=== PATIENT | female | born 1970 | race Caucasian/White ===

== ENCOUNTER 2016-11-07 21:42 | Emergency (ER) | payer OTHER ==
[2016-11-07 21:43] VITALS: BMI 35.2
[2016-11-07 22:18] VITALS: BP 145/81; PULSE 77; RESP 20; TEMP 97.1; O2SAT 100
[2016-11-07] MEDS ORDERED: Sodium Chloride 0.9% 1,000 ML IV STA (23:06)
--- NOTE | 2016-11-07 23:13 | ED PDOC ---
HPI: General Adult Time Seen by Provider: 11/07/16 22:24 Chief Complaint (Nursing): Dizziness/Lightheaded Chief Complaint (Provider): Dizziness, throat pain History Per: Patient History/Exam Limitations: no limitations Onset/Duration Of Symptoms: Hrs Have you had recent travel within the past 21 days to any of the following countries: [place], [place], [place] or [place]?: No Current Symptoms Are (Timing): Still Present Additional History Per: Patient Additional Complaint(s): The patient is a 46yo female, no past medical history, presents to the ED with complaints of dizzines and throat discomfort. Patient reports she was seen at a clinic 6 days ago for folliculitis and was started on Doxycycline. Patient reports she took her 1st dose today and within 2 hours of taking the dose, she felt weak, dizzy and had throat discomfort. Patient also reports epigastric pain but denies any nausea, vomiting, fever, cough, shortness of breath, chest pain. She offers no additional medical complaints. Past Medical History Reviewed: Historical Data, Nursing Documentation, Vital Signs Vital Signs: Last Vital Signs Temp 97.1 F L 11/07/16 22:15 Pulse 77 11/07/16 22:15 Resp 20 11/07/16 22:15 BP 145/81 11/07/16 22:15 Pulse Ox 100 11/08/16 01:09 - Medical History PMH: Anemia, Anxiety (ABOUT SURGERY), Gastritis, HTN Denies: Chronic Kidney Disease - Surgical History Other surgeries: hysterectomy - Family History Family History: States: Unknown Family Hx - Social History Current smoker - smoking cessation education provided: No Alcohol: None Drugs: Denies - Home Medications Home Medications: Ambulatory Orders Medication Instructions Recorded Omeprazole Magnesium [Prilosec Otc] 1 tcp PO PRN PRN 08/21/13 DiphenhydrAMINE [Benadryl] 1 cap PO PRN PRN 09/19/13 Cyproheptadine Hydrochloride 4 mg PO 09/30/13 [Periactin] oxyCODONE/Acetaminophen [Percocet 1 tab PO PRN 09/30/13 5/325 mg Tab] Docusate [Colace LIQUID] 100 mg PO BID #28 udc 10/02/13 Ibuprofen [Motrin] 800 mg PO Q6 PRN #40 tab 10/02/13 Nitrofurantoin Macrocrystals 1 cap PO BID #14 cap 10/10/13 [Macrobid] Cephalexin [Keflex] 500 mg PO Q6 #28 capsule 11/08/16 Famotidine [Pepcid] 20 mg PO Q12 #14 tab 11/08/16 - Allergies Allergies/Adverse Reactions: Allergies Allergy/AdvReac Type Severity Reaction Status Date / Time acetaminophen [From Percocet] Allergy RASH Verified 11/07/16 22:15 lactose Allergy NAUSEA Verified 11/07/16 22:15 megestrol Allergy RASH Verified 11/07/16 22:15 oxycodone [From Percocet] Allergy RASH Verified 11/07/16 22:15 Review of Systems ROS Statement: Except As Marked, All Systems Reviewed And Found Negative Constitutional: Negative for: Fever ENT: Positive for: Throat Pain (throat discomfort) Cardiovascular: Negative for: Chest Pain Respiratory: Negative for: Cough, Shortness of Breath Gastrointestinal: Positive for: Abdominal Pain (mild epigastric pain) Neurological: Positive for: Weakness, Dizziness Physical Exam - Reviewed Nursing Documentation Reviewed: Yes Vital Signs Reviewed: Yes - Physical Exam Appears: Positive for: Well, Non-toxic, No Acute Distress Head Exam: Positive for: ATRAUMATIC, NORMAL INSPECTION, NORMOCEPHALIC Skin: Positive for: Normal Color, Warm, Dry Eye Exam: Positive for: Normal appearance, EOMI, PERRL ENT: Positive for: Normal ENT Inspection Neck: Positive for: Normal, Supple Cardiovascular/Chest: Positive for: Regular Rate, Rhythm Respiratory: Positive for: Normal Breath Sounds. Negative for: Respiratory Distress Gastrointestinal/Abdominal: Positive for: Normal Exam, Soft. Negative for: Tenderness Back: Positive for: Normal Inspection Extremity: Positive for: Normal ROM. Negative for: Deformity, Swelling Neurologic/Psych: Positive for: Alert, Oriented. Negative for: Motor/Sensory Deficits - Laboratory Results Result Diagrams: 11/08/16 00:34 11/08/16 00:34 - ECG O2 Sat by Pulse Oximetry: 100 (RA) Pulse Ox Interpretation: Normal Medical Decision Making Medical Decision Making: Time: 2300 Impression: 46yo female with weakness, dizziness in setting of recent antibiotics use Plan: -- Labs -- IV Fluids Reassess Time: 0000 Labs reviewed and indicate no clinically significant abnormalities. Patient reports improvement of symptoms. Patient advised to discontinue use of doxycycline and given prescription for Kefflex. Patient stable for discharge home. Diagnosis: Adverse reaction to medications Scribe Attestation: Documented by Kylee Cho acting as a scribe for Edgardo Gonsales MD. Provider Attestation: All medical record entries made by the Scribe were at my direction and personally dictated by me. I have reviewed the chart and agree that the record accurately reflects my personal performance of the history, physical exam, medical decision making, and the department course for this patient. I have also personally directed, reviewed, and agree with the discharge instructions and disposition. Disposition - Clinical Impression Clinical Impression: Adverse drug experience - Patient ED Disposition Is Patient to be Admitted: No - Disposition Disposition: Routine/Home Disposition Time: 00:00 Condition: STABLE Prescriptions: Cephalexin [Keflex] 500 mg PO Q6 #28 capsule Famotidine [Pepcid] 20 mg PO Q12 #14 tab Instructions: Adverse Drug Reaction (ED) Forms: [employer] (Gabonese), [facility] ED School/Work Excuse Print Language: NICARAGUAN
[2016-11-08 00:39] LABS: BASO # 0.1 K/uL (0.0-0.2); BASO % 0.7 % (0.0-2.0); EOS # 0.1 K/uL (0.0-0.7); EOS % 1.6 % (0.0-4.0); HEMATOCRIT 40.2 % (34.0-47.0); LYMPH # 2.6 K/uL (1.0-4.3); LYMPH % 32.6 % (20.0-40.0); MEAN CELL VOLUME 84.9 fl (81.0-99.0); MEAN CORPUSCULAR HEMOGLOBIN 27.4 pg (27.0-31.0); MEAN CORPUSCULAR HGB CONC 32.3 g/dL (33.0-37.0); MEAN PLATELET VOLUME 8.9 fl (7.2-11.7); MONO # 0.7 K/uL (0.0-0.8); MONO % 8.4 % (0.0-10.0); NEUT # 4.6 K/uL (1.8-7.0); NEUT % 56.7 % (50.0-75.0); NRBC % 0.1 % (0.0-0.0); RED CELL DISTRIBUTION WIDTH 13.7 % (11.5-14.5); WHITE BLOOD COUNT 8.1 K/uL (4.8-10.8)
[2016-11-08 00:48] LABS: ALB/GLOB RATIO 1.3 (1.0-2.1); ALKALINE PHOSPHATASE 68 U/L (38-126); ALT/SGPT 41 U/L (9-52); AST/SGOT 22 U/L (14-36); BILIRUBIN,TOTAL 0.4 mg/dl (0.2-1.3); BLOOD UREA NITROGEN 22 mg/dl (7-17); CALCIUM 9.4 mg/dL (8.4-10.2); CARBON DIOXIDE 22 mmol/L (22-30); CHLORIDE 105 mmol/L (98-107); GFR AFRICAN-AMERICAN > 60; GLUCOSE,RANDOM 100 mg/dL (65-105); SODIUM 138 mmol/l (132-148); TOTAL PROTEIN 7.1 G/DL (6.3-8.2)
--- NOTE | 2016-11-08 11:21 | CARD ---
APPROVED REPORT EKG Measurement Heart [id number] <Conclusion> Sinus rhythm with short TN Otherwise normal ECG
== END 2016-11-08 01:24 | disposition home or self-care (01) ==
LOC: H.ER 21:42
DX: R42 Dizziness and giddiness (principal); T88.7XXA Unspecified adverse effect of drug or medicament, initial encounter; F41.9 Anxiety disorder, unspecified; I10 Essential (primary) hypertension
CPT/HCPCS: 80053; 82948; 85025; 87070; 87430; 93005; 96360; 99283; J7040

== ENCOUNTER 2017-02-21 12:23 | Emergency (ER) | payer OTHER ==
[2017-02-21 12:23] VITALS: BMI 35.2
[2017-02-21 12:32] VITALS: BP 161/88; PULSE 81; RESP 18; TEMP 99.1; O2SAT 99
--- NOTE | 2017-02-21 13:07 | ED PDOC ---
HPI: Back Time Seen by Provider: 02/21/17 12:36 Chief Complaint (Nursing): Back Pain Chief Complaint (Provider): Back Pain History Per: Patient History/Exam Limitations: no limitations Onset/Duration Of Symptoms: Days (x3) Current Symptoms Are (Timing): Still Present Additional Complaint(s): Kay Gregory is a 46 year old female with no significant past medical history who presents to the ED complaining of pain to her left upper back x3 days. States pain radiates from scapular region to ear. Also states she has been taking Naproxen with relief, but the pain returns after some time. Denies trauma , sweating, pain radiating to chest, and abdominal pain. 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 PMD: Non-CPH Provider Past Medical History Reviewed: Historical Data, Nursing Documentation, Vital Signs Vital Signs: Last Vital Signs Temp 99.1 F 02/21/17 12:30 Pulse 81 02/21/17 12:30 Resp 18 02/21/17 12:30 BP 161/88 H 02/21/17 12:30 Pulse Ox 99 02/21/17 12:30 - Medical History PMH: Anemia, Anxiety (ABOUT SURGERY), Gastritis, HTN Denies: Chronic Kidney Disease - Surgical History Other surgeries: Hysterectomy for fibroids - Family History Family History: States: Unknown Family Hx - Home Medications Home Medications: Ambulatory Orders Medication Instructions Recorded Omeprazole Magnesium [Prilosec Otc] 1 tcp PO PRN PRN 08/21/13 DiphenhydrAMINE [Benadryl] 1 cap PO PRN PRN 09/19/13 Cyproheptadine Hydrochloride 4 mg PO 09/30/13 [Periactin] oxyCODONE/Acetaminophen [Percocet 1 tab PO PRN 09/30/13 5/325 mg Tab] Docusate [Colace LIQUID] 100 mg PO BID #28 udc 10/02/13 Ibuprofen [Motrin] 800 mg PO Q6 PRN #40 tab 10/02/13 Nitrofurantoin Macrocrystals 1 cap PO BID #14 cap 10/10/13 [Macrobid] Cephalexin [Keflex] 500 mg PO Q6 #28 capsule 11/08/16 Famotidine [Pepcid] 20 mg PO Q12 #14 tab 11/08/16 Cyclobenzaprine [Cyclobenzaprine 10 mg PO BID #14 tab 02/21/17 HCl] Tramadol HCl [Ultram] 50 mg PO Q6 #15 tab 02/21/17 - Allergies Allergies/Adverse Reactions: Allergies Allergy/AdvReac Type Severity Reaction Status Date / Time ibuprofen Allergy RASH Verified 02/21/17 12:30 Review of Systems ROS Statement: Except As Marked, All Systems Reviewed And Found Negative Constitutional: Negative for: Sweats Cardiovascular: Negative for: Chest Pain, Palpitations Gastrointestinal: Negative for: Abdominal Pain Musculoskeletal: Positive for: Shoulder Pain (left scalpular region), Back Pain (upper) Physical Exam - Reviewed Nursing Documentation Reviewed: Yes Vital Signs Reviewed: Yes - Physical Exam Appears: Positive for: Well, Non-toxic, No Acute Distress Head Exam: Positive for: ATRAUMATIC, NORMAL INSPECTION, NORMOCEPHALIC Skin: Positive for: Normal Color, Warm, DRY Eye Exam: Positive for: EOMI, Normal appearance, PERRL ENT: Positive for: Normal ENT Inspection Neck: Positive for: Normal, Painless ROM, Supple Cardiovascular/Chest: Positive for: Chest Non Tender Gastrointestinal/Abdominal: Positive for: Normal Exam, Bowel Sounds, Soft. Negative for: Tenderness Back: Positive for: Normal Inspection. Negative for: L CVA Tenderness, R CVA Tenderness, Vertebral Tenderness Extremity: Positive for: Normal ROM (pain when rotating scapular region), Tenderness (to palpation of scapular region). Negative for: Deformity, Other ( AC joint tenderness) Neurologic/Psych: Positive for: Alert, Oriented. Negative for: Motor/Sensory Deficits - ECG O2 Sat by Pulse Oximetry: 99 (RA) Pulse Ox Interpretation: Normal Medical Decision Making Medical Decision Making: Time: 13:08 Initial Impression: Spasms Plan: --Patient has low cardiac risk factors, normal O2 sat and pulse, and is PERC negative. --Flexeril 10 mg PO --Reevaluation Scribe Attestation: Documented by Otto Gutierrez, acting as a scribe for Vielka Brooks PA-C Provider Scribe Attestation: All medical record entries made by the Scribe were at my direction and personally dictated by me. I have reviewed the chart and agree that the record accurately reflects my personal performance of the history, physical exam, medical decision making, and the department course for this patient. I have also personally directed, reviewed, and agree with the discharge instructions and disposition. Disposition - Clinical Impression Clinical Impression: Upper back strain - Patient ED Disposition Is Patient to be Admitted: No - Disposition Referrals: LTAC[facility] [Outside] Disposition: Routine/Home Disposition Time: 17:15 Condition: STABLE Prescriptions: Cyclobenzaprine [Cyclobenzaprine HCl] 10 mg PO BID #14 tab Tramadol HCl [Ultram] 50 mg PO Q6 #15 tab Instructions: Back Pain (ED) Forms: [employer] (Amharic)
== END 2017-02-21 14:14 | disposition home or self-care (01) ==
LOC: H.ER 12:23
DX: M54.9 Dorsalgia, unspecified (principal); F41.9 Anxiety disorder, unspecified; I10 Essential (primary) hypertension

== ENCOUNTER 2017-03-26 12:18 | Emergency (ER) | payer OTHER ==
[2017-03-26 12:19] VITALS: BMI 35.2
[2017-03-26 12:31] VITALS: PULSE 83; RESP 16; TEMP 99; O2SAT 99
--- NOTE | 2017-03-26 12:37 | ED PDOC ---
HPI: Chest Pain Time Seen by Provider: 03/26/17 12:30 Chief Complaint (Nursing): Chest Pain Chief Complaint (Provider): Chest pain only when coughing, cough x 5 days History Per: Patient History/Exam Limitations: no limitations Onset/Duration Of Symptoms: Days Current Symptoms Are (Timing): Still Present Additional Complaint(s): Central chest pain with coughing only.PT denies fever/chills. Denies phlegm. No medications at home for symptoms. No chest pain at rest. No SOB Past Medical History Reviewed: Historical Data, Nursing Documentation, Vital Signs Vital Signs: Last Vital Signs Temp 99.0 F 03/26/17 12:29 Pulse 83 03/26/17 12:29 Resp 16 03/26/17 12:29 BP 160/84 H 03/26/17 12:29 Pulse Ox 99 03/26/17 12:37 - Medical History PMH: Anemia, Anxiety (ABOUT SURGERY), Gastritis, HTN Denies: Chronic Kidney Disease - Surgical History Surgical History: No Surg Hx - Family History Family History: States: Unknown Family Hx - Living Arrangements Living Arrangements: With Family - Social History Current smoker - smoking cessation education provided: No Alcohol: None Drugs: Denies - Home Medications Home Medications: Ambulatory Orders Medication Instructions Recorded Omeprazole Magnesium [Prilosec Otc] 1 tcp PO PRN PRN 08/21/13 DiphenhydrAMINE [Benadryl] 1 cap PO PRN PRN 09/19/13 Cyproheptadine Hydrochloride 4 mg PO 09/30/13 [Periactin] oxyCODONE/Acetaminophen [Percocet 1 tab PO PRN 09/30/13 5/325 mg Tab] Docusate [Colace LIQUID] 100 mg PO BID #28 udc 10/02/13 Ibuprofen [Motrin] 800 mg PO Q6 PRN #40 tab 10/02/13 Nitrofurantoin Macrocrystals 1 cap PO BID #14 cap 10/10/13 [Macrobid] Cephalexin [Keflex] 500 mg PO Q6 #28 capsule 11/08/16 Famotidine [Pepcid] 20 mg PO Q12 #14 tab 11/08/16 Cyclobenzaprine [Cyclobenzaprine 10 mg PO BID #14 tab 02/21/17 HCl] Tramadol HCl [Ultram] 50 mg PO Q6 #15 tab 02/21/17 Promethazine HCl/Codeine 10 ml PO Q8H PRN #150 ml 03/26/17 [Prometh-Codein 6.25-10 mg/5 ml] - Allergies Allergies/Adverse Reactions: Allergies Allergy/AdvReac Type Severity Reaction Status Date / Time ibuprofen Allergy RASH Verified 02/21/17 12:30 Review of Systems ROS Statement: Except As Marked, All Systems Reviewed And Found Negative Constitutional: Negative for: Fever, Chills Cardiovascular: Positive for: Chest Pain (with cough) Respiratory: Positive for: Cough. Negative for: Shortness of Breath Physical Exam - Reviewed Nursing Documentation Reviewed: Yes Vital Signs Reviewed: Yes - Physical Exam Appears: Positive for: Well, Non-toxic, No Acute Distress Head Exam: Positive for: ATRAUMATIC, NORMAL INSPECTION, NORMOCEPHALIC Skin: Positive for: Normal Color, Warm, DRY Eye Exam: Positive for: Normal appearance ENT: Positive for: Normal ENT Inspection Neck: Positive for: Normal, Painless ROM Cardiovascular/Chest: Positive for: Regular Rate, Rhythm Respiratory: Positive for: Normal Breath Sounds. Negative for: Accessory Muscle Use, Rales, Rhonchi, Wheezing, Respiratory Distress Back: Positive for: Normal Inspection Extremity: Positive for: Normal ROM Neurologic/Psych: Positive for: Alert, Oriented - ECG O2 Sat by Pulse Oximetry: 99 Disposition - Clinical Impression Clinical Impression: Viral illness - Patient ED Disposition Is Patient to be Admitted: No Counseled Patient/Family Regarding: Diagnosis, Need For Followup, Rx Given - Disposition Disposition: Routine/Home Disposition Time: 14:57 Condition: GOOD Prescriptions: Promethazine HCl/Codeine [Prometh-Codein 6.25-10 mg/5 ml] 10 ml PO Q8H PRN #150 ml PRN Reason: Cough Instructions: Acute Cough (ED) Forms: [employer] (Polish) Print Language: SERBIAN
--- NOTE | 2017-03-26 13:48 | RAD ---
HISTORY: cough, chest pin COMPARISON: No prior. TECHNIQUE: Chest PA and lateral FINDINGS: LUNGS: No active pulmonary disease. PLEURA: No significant pleural effusion identified. No pneumothorax apparent. CARDIOVASCULAR: Normal. OSSEOUS STRUCTURES: Degenerative changes are seen in the spine. VISUALIZED UPPER ABDOMEN: Normal. OTHER FINDINGS: None. IMPRESSION: No active disease.
[2017-03-26 15:47] VITALS: BP 154/81
--- NOTE | 2017-03-27 08:54 | CARD ---
APPROVED REPORT EKG Measurement Heart [id number] <Conclusion> Normal sinus rhythm Septal infarct, age undetermined Abnormal ECG
== END 2017-03-26 15:46 | disposition home or self-care (01) ==
LOC: H.ER 12:18
DX: B34.9 Viral infection, unspecified (principal); F41.9 Anxiety disorder, unspecified; I10 Essential (primary) hypertension